=== PATIENT | male | born 1970 | race Caucasian/White ===

== ENCOUNTER 2019-08-06 09:02 | Day surgery (SDC) | payer MEDICARE, SELFPAY ==
[2019-08-05 07:18] VITALS: BMI 28.5
--- NOTE | 2019-08-06 09:11 | PM.HPUD ---
H&P update H&P Update: DATE OF SURGERY/PROCEDURE: 08/06/19 DATE H&P PERFORMED: 07/28/19 PLANNED PROCEDURE: Operation Date: 08/06/19 10:00 Proposed Procedures p Colonoscopy(Not Applicable) - Sujti Wong MD Full H&P Perinent History: Family History: Family History (Updated 07/19/19 @ 09:52 by Martha Sorensen LPN) Father Diabetes Heart disease Cancer colon, prostate Social History: Social History Household members: spouse Housing: House Marital status:
--- NOTE | 2019-08-06 10:14 | ANES.PREANES ---
Pre-Anesthetic Assessment Pre-Anesthetic Assessment: Height/Weight: Height 1.75 m Weight 87.543 kg Preop Diagnosis: blood in stool Proposed Procedure: Operation Date: 08/06/19 10:00 Proposed Procedures p Colonoscopy(Not Applicable) - Sujit Wong MD Familial anesthetic complications: None Was Beta Destiny taken within 24 hours: N/A Last intake: NPO > 8 hrs Social: Social History: No alcohol and No tobacco Exam: Pre-Anes Outpt Exam: alert, oriented x 3, clear to auscultation bilaterally and regular rate & rhythm Airway: Cervical ROM: WNL MP: 2 Dentition: Full Pulmonary: Pulmonary: None reported CV/HEM: CV/HEM: None reported : : None reported Hepatic: Hepatic: None reported Metabolic: Metabolic: Hyperlipidemia Musc/skel: Musc/skel: None reported Neuropsych: Neuropsych: None reported Anesthetic Plan: ASA status: II Anesthesia: MAC Risk of > 500 ml blood loss (7ml/kg in children): No PFSH Anesthesia PFSH: Social History Household members: spouse Housing: House Marital status: Data Anesthesia Cardiac Studies: No Data to Display
[2019-08-06 10:49] VITALS: BP 131/93; PULSE 67; RESP 18; TEMP 36.2; O2SAT 95
[2019-08-06] MEDS: sodium chloride 0.9% 1,000 ML 30 ML (10:52)
[2019-08-06 11:50] VITALS: BP 94/74; PULSE 80; RESP 16; TEMP 36.4; O2SAT 93
--- NOTE | 2019-08-06 11:54 | ANE.PACU ---
 Inpatient post-anesthesia follow up: Airway intact: Yes Vital signs: Temperature 97.6 F Pulse Rate 80 Respiratory Rate 16 Blood Pressure 94/74 Pulse Oximetry 93 Oxygen Delivery Me thod Nasal Cannula Oxygen Flow Rate 3 Fraction of Inspir ed Oxygen Hydration adequate: Yes Nausea and vomiting: No Pain level: 1 Mental status: Baseline
[2019-08-06 12:09] VITALS: BP 110/87; PULSE 68; RESP 18; O2SAT 94
== END 2019-08-06 12:48 | disposition home or self-care (01) ==
PROVIDERS: Visit Provider Internal Medicine
PROC: 0DJD8ZZ Inspection of Lower Intestinal Tract, Via Natural or Artificial Opening Endoscopic (ICD-10-PCS; CPT 45378; principal; 2019-08-06 10:00)
DX: R19.5 Other fecal abnormalities (principal); Z82.49 Family history of ischemic heart disease and other diseases of the circulatory system; Z83.3 Family history of diabetes mellitus; Z87.891 Personal history of nicotine dependence
CPT/HCPCS: 12345; 45378; J2704; J7030

== ENCOUNTER 2022-08-11 14:30 | Emergency (ER) | payer MEDICARE, SELFPAY ==
[2022-08-11] VITALS (13 sets, daily range): BP systolic 114–142; BP diastolic 80–100; PULSE 54–69; RESP 13–20; TEMP 36.7; O2SAT 93–98; BMI 29.3
--- NOTE | 2022-08-11 14:40 | XRR_ITS ---
PROCEDURE INFORMATION: Exam: XR Chest Exam date and time: 08/11/2022 3:20 PM Age: 52 years old Clinical indication: Pain; Chest pressure; Additional info: Chest pain TECHNIQUE: Imaging protocol: Radiologic exam of the chest. Views: 1 view. COMPARISON: CR XR chest 1V 13024 08/30/2018 9:57 PM FINDINGS: Lungs: Unremarkable. No consolidation. Pleural spaces: Unremarkable. No pleural effusion. No pneumothorax. Heart/Mediastinum: Unremarkable. No cardiomegaly. Bones/joints: Unremarkable. XR/XR chest 1V portable [id number] IMPRESSION: No acute findings.
--- NOTE | 2022-08-11 14:40 | ECG_ITS ---
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 Measurements Intervals [place] Rate: 67 P: 29 [place]: 157 QRS: -1 QRSD: 94 T: 16 QT: 419 QTc: 443 Interpretive Statements SINUS RHYTHM WITH OCCASIONAL VENTRICULAR PREMATURE COMPLEXES MINIMAL ST DEPRESSION [0.025+ mV ST DEPRESSION] No previous ECG available for comparison Electronically Signed On 08-12-2022 20:52:21 PAGE DESIGNER by Carmela Gabriel M.D. [email or web address]/store/OM/[id number]
--- NOTE | 2022-08-11 15:02 | ED_ITS ---
HPI - Chest Pain General: Chief Complaint: Chest Pain Stated Complaint: chest pain, numbness, and weak Time Seen by Provider: 08/11/22 14:40 Source: patient Mode of arrival: ambulatory History of Present Illness: 52-year-old male who presents to the emergency room with complaints of chest pain and left arm numbness that began this morning around 1030. He had some chest discomfort with it as well. He also has noticed some double vision. No fever sweats chills. No difficulty speech swallowing or vision. Does not notice anything that exacerbates or relieves it. MD complaint: chest pain Onset (ago): hour(s) Timing of current episode: episodic Prior episodes: No Onset: during rest Pain location: substernal Pain radiation: left arm Severity: mild Quality: aching Relieving factors: nothing Exacerbating factors: nothing Associated symptoms: Deny abdominal pain, diaphoresis, dyspnea, fever(s), leg edema, nausea, palpitations, sense of impending doom, syncope or vomiting Treatment prior to arrival: none Review of Systems Const: Denies: fever(s), chills or diaphoresis ENMT: Denies: throat pain, ear or mastoid pain, nasal discharge or nasal congestion Card: Reports: chest pain; Denies: palpitations, irregular heart rhythm, edema or syncope Resp: Denies: dyspnea, productive cough, non-productive cough or wheezing GI: Denies: abdominal pain, nausea or vomiting : Denies: flank pain, dysuria, urinary frequency or urinary urgency Skin/Breast: Denies: rash or pruritus PFS ED PFSH: Family History Father Diabetes Heart disease Cancer colon, prostate Social History (Updated 08/11/22 @ 15:10 by Irvin Chavarria DO) Smoking and tobacco status: never smoked Alcohol intake: never Household members: spouse Housing: House Marital status: Physical Exam Const: GENERAL APPEARANCE: cooperative and comfortable ORIENTATION/CONSCIOUSNESS: Yes awake, Yes oriented to person, Yes oriented to place and Yes oriented to time HENMT: COMMON NORMALS: normocephalic, atraumatic and hearing grossly normal bilaterally HEAD & SCALP: normocephalic and atraumatic Resp: COMMON NORMALS: normal respiratory effort, No retractions, No use of accessory muscles and clear to auscultation bilaterally AUSCULTATION: clear to auscultation bilaterally Cardio: COMMON NORMALS: regular rate, regular rhythm and No murmurs present (Cardio) RATE: regular rate RHYTHM: regular rhythm GI: COMMON NORMALS: Soft to palpation and No hepatosplenomegaly present AUSCULTATION: Yes normoactive bowel sounds PALPATION: Yes Soft to palpation, No Tenderness to palpation present (GI), No Guarding due to palpation present (GI) and Yes No hepatosplenomegaly present Extremity: COMMON NORMALS: normal to inspection, capillary refill normal, no clubbing, cyanosis or edema, no calf tenderness and no pedal edema Neuro: SENSORIUM/ORIENTATION: Yes oriented to person, Yes oriented to place and Yes oriented to time Skin: COMMON NORMALS: no rashes or lesions noted GENERAL SKIN EXAM: no rashes or lesions noted Course Vital Signs: Vital signs: Vital Signs Temperature 98.1 F 08/11/22 14:45 Pulse Rate 56 L 08/11/22 17:15 Respiratory Rate 20 H 08/11/22 17:15 Blood Pressure 120/85 08/11/22 17:15 Pulse Oximetry 98 08/11/22 17:15 Oxygen Delivery Me thod 08/11/22 15:08 MDM - Chest Pain Medical Decision Making Labs imaging and EKG reviewed as found on the chart. No acute EKG changes. Cardiac enzymes trended negative. Repeat exam unremarkable there is no sign of acute focal neurologic deficit take hitting stroke. We will set him up for an outpatient Lexiscan sestamibi stress test he has not been taking his atorvastatin asked him to restart that also started on a baby aspirin follow-up with his primary care doctor. Return if has further problems. Medical Records I reviewed the patient's medical records. Lab Data I reviewed the patient's lab results. 08/11/22 15:26 08/11/22 15:00 Radiology Impressions Chest X-Ray 08/11/22 14:40 IMPRESSION: No acute findings. Head CT 08/11/22 15:04 IMPRESSION: Negative for intracranial hemorrhage or mass effect. Laboratory Results WBC 8.5 10^3/uL (4.0-10.0) 08/11/22 15:26 Corrected WBC Cancelled 08/11/22 15:00 RBC 4.91 10^6/uL (4.1-5.3) 08/11/22 15: Hgb 14.2 g/dL (11.7-16.6) 08/11/22 15: Hct 41.8 % (42.0-52.0) L 08/11/22 15: MCV 85.1 fl (80-94) 08/11/22 15: MCH 28.9 pg (28.0-34.0) 08/11/22: MCHC 34.0 g/dL (30.0-36.0) 08/11/22: RDW 12.4 % (12.1-15.1) 08/11/22: Plt Count 244 10^3/cmm (130-400) 08/11/22: MPV 10.0 fL (7.4-10.4) 08/11/22 15: Gran % Cancelled 08/11/22 15:00 Neut % (Auto) 62.4 % 08/11/22 15: Lymph % (Auto) 25.7 % 08/11/22 15:26 [place] % (Auto) 7.7 % 08/11/22 15: Eos % (Auto) 3.2 % 08/11/22: Baso % (Auto) 0.8 % 08/11/22: Neut # (Auto) 5.28 10^3/uL (1.8-7.7) 08/11/22 15: Lymph # (Auto) 2.2 10^3/uL (0.8-4.8) 08/11/22 15: [place] # (Auto) 0.7 10^3/uL (0.2-0.9) 08/11/22 15: Eos # (Auto) 0.3 10^3/uL (0.0-0.8) 08/11/22: Baso # (Auto) 0.1 10^3/uL (0.0-0.1) 08/11/22: Absolute Gran (auto) Cancelled 08/11/22 15:00 Nucleated RBC % (auto) 0 % 08/11/22: Nucleated RBCs # 0.0 /100WBC 08/11/22 15: Sodium 132 mmol/L (136-145) L 08/11/22 15:00 Potassium 4.0 mmol/L (3.5-5.1) 08/11/22 15:00 Chloride 100 mmol/L (98-107) 08/11/22 15:00 Carbon Dioxide 22 mmol/L (22-29) 08/11/22 15:00 Anion Gap 14.0 (5-19) 08/11/22 15:00 BUN 17 mg/dL (6-20) 08/11/22 15:00 Creatinine 0.7 mg/dL (0.7-1.2) 08/11/22 15:00 GFR Calculation 118.4 mL/min (90-130) 08/11/22 15:00 Glucose 90 mg/dL (65-115) 08/11/22 15:00 Calculated Osmolality 275 mOsm/kg (285-295) L 08/11/22 15:00 Calcium 9.6 mg/dL (8.5-10.5) 08/11/22 15:00 Total Bilirubin 0.4 mg/dL (0.15-1.2) 08/11/22 15:00 AST 19 U/L (0-40) 08/11/22 15:00 ALT 15 U/L (0-41) 08/11/22 15:00 Alkaline Phosphatase 72 U/L (40-130) 08/11/22 15:00 Troponin T Baseline 6 ng/L (0-15) 08/11/22 15:00 Troponin T 120 Minute 6.00 ng/L (0-15) 08/11/22 16:35 Total Protein 7.3 g/dL (6.6-8.7) 08/11/22 15:00 Albumin 4.7 g/dL (3.5-5.2) 08/11/22 15:00 Globulin 2.6 g/dL (1.3-4.6) 08/11/22 15:00 Discharge Plan Discharge Patient Disposition: Home Clinical Impression: Atypical chest pain Condition: Stable Prescriptions: New aspirin 81 mg tablet,delayed release (DR/EC) 81 mg PO DAILY Qty: 30 0RF atorvastatin 40 mg tablet 40 mg PO QPM Qty: 30 0RF No Action trazodone 100 mg tablet 100 mg PO QDAY multivitamin [Multiple Vitamins] Tablet 1 tab PO QAM atorvastatin [Lipitor] 40 mg tablet 40 mg PO BEDTIME Discharge Orders: Discharge ED (Routine); Ordered 08/11/22 Ordered By: Irvin Chavarria Discharge Diet: Usual diet Discharge Activity: Increase activity as tolerated Patient Instructions: Opioid Safety, Pain Management Activity Restrictions/Additional Instructions: You were seen today for atypical chest pain. Your EKGs and cardiac enzymes were negative. Would recommend that you resume taking atorvastatin 40 mg daily and also baby aspirin daily. Your exam was negative for stroke and the CT of your head was also negative. If symptoms recur or worsen you can return to the emergency room or follow-up with your primary care doctor. Coding Level of Care Code ED Director Embalmer for Chg Fwd Exam Detailed
--- NOTE | 2022-08-11 15:04 | CTR_ITS ---
PROCEDURE INFORMATION: Exam: CT Head Without Contrast Exam date and time: 08/11/2022 3:46 PM Age: 52 years old Clinical indication: Visual disturbance; Additional info: Visual changes TECHNIQUE: Imaging protocol: Computed tomography of the head without contrast. Radiation optimization: All CT scans at this facility use at least one of these dose optimization techniques: automated exposure control; mA and/or kV adjustment per patient size (includes targeted exams where dose is matched to clinical indication); or iterative reconstruction. Other protocol: This patient has received 0 known CTs and 0 known cardiac nuclear medicine studies in the 12 months prior to the current study. COMPARISON: No relevant prior studies available. RADIATION DOSE METRICS: Total DLP (mGy-cm): 1197.78 FINDINGS: Brain: Normal. No hemorrhage. Unremarkable white matter. No mass effect. Cerebral ventricles: No ventriculomegaly. Paranasal sinuses: Left maxillary sinus mucosal polyp versus retention cyst incompletely visualized. Paranasal sinus mucosal thickening. Mastoid air cells: Visualized mastoid air cells are well aerated. Bones/joints: Unremarkable. No acute fracture. Soft tissues: Unremarkable. CT/CT head wo con* [id number] IMPRESSION: Negative for intracranial hemorrhage or mass effect.
[2022-08-11] MEDS: aspirin 81 mg Chew Tablet 324 MG PO (15:24)
[2022-08-11 15:34] LABS: Alanine Aminotransferase 15 U/L (0-41); Albumin Level 4.7 g/dL (3.5-5.2); Alkaline Phosphatase 72 U/L (40-130); Aspartate Amino Transferase 19 U/L (0-40); Blood Urea Nitrogen 17 mg/dL (6-20); Calcium 9.6 mg/dL (8.5-10.5); Carbon Dioxide 22 mmol/L (22-29); Chloride 100 mmol/L (98-107); Globulin 2.6 g/dL (1.3-4.6); Glomerular Filtration Rate 118.4 mL/min (90-130); Glucose 90 mg/dL (65-115); Osmolality Calculated 275 mOsm/kg (285-295); Sodium 132 mmol/L (136-145); Total Bilirubin 0.4 mg/dL (0.15-1.2); Total Protein 7.3 g/dL (6.6-8.7)
[2022-08-11 15:35] LABS: Troponin(5th) Baseline 6 ng/L (0-15)
[2022-08-11 15:35] LABS: Basophils # 0.1 10^3/uL (0.0-0.1); Basophils % 0.8 %; Eosinophils # 0.3 10^3/uL (0.0-0.8); Eosinophils % 3.2 %; Hematocrit 41.8 % (42.0-52.0); Hemoglobin 14.2 g/dL (11.7-16.6); Lymphocytes # 2.2 10^3/uL (0.8-4.8); Lymphocytes % 25.7 %; Mean Corpuscular Hemoglobin 28.9 pg (28.0-34.0); Mean Corpuscular Volume 85.1 fl (80-94); Monocytes # 0.7 10^3/uL (0.2-0.9); Monocytes % 7.7 %; Neutrophils # 5.28 10^3/uL (1.8-7.7); Neutrophils % 62.4 %; Nucleated Red Blood Cells % 0 %; Platelet Count 244 10^3/cmm (130-400); Red Blood Count 4.91 10^6/uL (4.1-5.3); Red Cell Distribution Width 12.4 % (12.1-15.1); White Blood Count 8.5 10^3/uL (4.0-10.0)
--- NOTE | 2022-08-11 16:40 | ECG_ITS ---
[facility] Test Date: 2022-08-11 Pat Name: Michael Banda Department: Room: Gender: Male Director Of Outpatient Services: : 1970 Requested By: Irvin Yan Order Number: [id number] Jose L MD: Carmela Gabriel M.D. Measurements Intervals [place] Rate: 53 P: 19 [place]: 167 QRS: -2 QRSD: 92 T: 14 QT: 437 QTc: 410 Interpretive Statements SINUS BRADYCARDIA MINIMAL VOLTAGE CRITERIA FOR LVH, CONSIDER NORMAL VARIANT [MEETS CRITERIA IN ONE OF: R(aVL), S(V1), R(V5), R(V5/V6)+S(V1)] MINIMAL ST DEPRESSION [0.025+ mV ST DEPRESSION] Compared to ECG 08/11/2022 14:52:24 Sinus rhythm no longer present Ventricular premature complex(es) no longer present ST (T wave) deviation still present Electronically Signed On 08-12-2022 22:25:05 TIRE BUILDER HEAVY SERVICE by Carmela Gabriel M.D. [email or web address].[employer].ge/store/OM/[id number]
[2022-08-11 17:32] LABS: Troponin 5 2HR Delta 0 ABS# (0-10)
--- NOTE | 2022-08-13 13:34 | DCPLANNER ---
Addendum entered by Natalee Romero 09/19/22 10:34: Patient had an outpatient stress test - patient did attend appointment. Addendum entered by Natalee Romero 09/18/22 15:29: Patient has a stress test scheduled for September at 8:15 Addendum entered by Natalee Romero 08/28/22 13:50: Patients called mental health case manager asking about stress test being ordered. manager environmental explained that a primary care physician was needed on file before the test was ordered. manager environmental was told that patient sees a Keron Ramírez in [place]. manager environmental faxed a signed order for a stress test to centralized scheduling, who will call patient with appointment information. Original Note: manager environmental had a message to schedule an outpatient stress test for patient. manager environmental called phone number [phone] to confirm who patient sees for primary care, there is not one listed in patients chart. manager environmental unable to speak with patient at this time, a voicemail was left for patient to return lining caser phone call. manager environmental is unable to order the stress test, due to no primary care physician to send results to.
== END 2022-08-11 17:43 | disposition home or self-care (01) ==
PROVIDERS: Emergency Provider Family Medicine
DX: R07.89 Other chest pain (principal)
CPT/HCPCS: 70450; 71045; 80053; 84484; 85025; 93005; 99285

== ENCOUNTER 2022-09-19 08:09 | Outpatient (CLI) | payer MEDICARE, SELFPAY ==
[2022-09-19 08:13] VITALS: BMI 26.6
--- NOTE | 2022-09-19 08:42 | ECG_ITS ---
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 Interpretive Statements NAME OF STUDY: LEXISCAN SESTAMIBI STRESS TEST INDICATION: Chest Pain, PROCEDURE: At the baseline, the EKG revealed sinus bradycardia. The baseline heart was 57 bpm with a blood pressue of 115/87 mm of Hg Lexiscan was infused over a period of 20 seconds. A total of 0.4 milligrams of Lexiscan was infused. The stress phase was continued for a total of 5 minutes. Heart rate at the end of the stress phase was 84 bpm with a blood pressure 124/80 mm of Hg. The EKG at the peak infusion revealed no significant changes. Occasional PVCs were noted on the monitor. Sestamibi was injected 20 seconds after the Lexiscan infusion. Heart rate at the end of the recovery phase was 74 bpm with a blood pressure of 115/76 mm of Hg. CONCLUSION: 1. No significant EKG changes with the LexiScan infusion 2. No LexiScan induced chest pain or cardiac arrhythmia 3. Normal blood pressure and heart rate response 4. Sestamibi/sestamibi perfusion scan pending; see separate report. Electronically Signed On 09-20-2022 13:31:30 CDT by Serge Rod M.D. [email or web address] [employer]/store/OM/[id number]
--- NOTE | 2022-09-19 08:43 | NMCV_ITS ---
NM erum perf SPECT r/s* [id number] Michael Banda Age: 52 Gender: M : 1970 Exam Date: 09/19/2022 08:43 Ordering Phys: Irvin Chavarria DO Technologist: MIRTA Hunt Exam Location: [facility] Indications: CHEST PAIN STRESS TEST Please see separate stress test report in [facility] for full findings IMAGE PROTOCOL Rest/Stress 1 Lexiscan Day Radiopharmaceutical Dose (mCi) Administration Site Administered by Rest: Tc-99m 10.9 IV MIRTA Steven Sestamibi Stress:Tc-99m 32.8 IV MIRTA Steven Sestamibi Rest: 19-Sep-2022 60 Discovery 630 Stress: 19-Sep-2022 30 Discovery 630 0.4mg Lexiscan. Images obtained in supine and prone position. SPECT RESULTS Technical Quality: Excellent Raw Data Analysis: Normal Image Corrections: No attenuation or motion correction applied Summed Stress Score: 0 Summed Rest Score: 0 Summed Difference Score: 0 PERFUSION FINDINGS Fairly uniform myocardial tracer uptake with no significant perfusion abnormalities FUNCTIONAL RESULTS (calculated via Gated SPECT) Stress Image LV EF (%): 73 Stress EDV (mL):94 TID: 1.03 Stress ESV (mL):25 FUNCTIONAL FINDINGS: Segmental wall motion analysis revealing no gross wall motion abnormalities IMPRESSIONS 1. Unremarkable Myocardial perfusion imaging. 2. Normal LV ejection fraction 73%. 3. LV wall motion analysis revealing no gross wall motion abnormalities. 4. Normal LV volume Low probability for coronary ischemia, based on the above findings No similar previous studies are available for comparison Dr Serge Rod MD [facility] (Electronically Signed) Final Date: 19 September 2022 12:43 S
[2022-09-19] MEDS: regadenoson 0.4 Mg/5 ml Syringe IVP (09:40)
[2022-09-19] MEDS: aminophylline 25 mg/mL SDV 10 mL IVP (09:50)
[2022-09-19 10:00] VITALS: BP 115/76; PULSE 71
== END 2022-09-19 08:10 | disposition home or self-care (01) ==
PROVIDERS: PCP Physician Assistant Medical; Visit Provider Family Medicine
DX: R07.9 Chest pain, unspecified (principal)
CPT/HCPCS: 36415; 78452; 93017; 96374; 96375; A9500; J0280; J2785